=== PATIENT | female | born 1955 | race Two or more races ===

== ENCOUNTER 2024-10-26 05:06 | Emergency (ER) | payer OTHER ==
[~2024-10-26] VITALS: Ht 160 cm; Wt 60.8 kg
[2024-10-26] MEDS ORDERED: HYOSCYAMINE SULFATE 0.125 MG TAB.SUBL SL STA (05:44)
[2024-10-26] MEDS ORDERED: PROMETHAZINE HCL 50 MG/ML AMPUL IM STA (05:44)
[2024-10-26] MEDS ORDERED: 0.9 % SODIUM CHLORIDE 1,000 ML IV ONE (05:45)
[2024-10-26] MEDS ORDERED: LACTOBACILLUS ACIDOPHILUS 1 CAP CAP PO STA (05:47)
[2024-10-26] MEDS ORDERED: FAMOTIDINE/PF 20 MG in 0.9 % SODIUM CHLORIDE 10 ML IV PUSH STA (05:47)
[2024-10-26 07:30] LABS: HEMATOCRIT 37.8 % (36.0-45.00); HEMOGLOBIN 12.8 g/dL (12.0-15.00); MEAN CELL VOLUME 86.7 fL (80.00-100.00); MEAN CORPUSCULAR HEMOGLOBIN 29.4 pg (27.00-32.0); PLATELET COUNT 280 K/uL (150-450); RED BLOOD COUNT 4.36 M/uL (4.00-6.00); RED CELL DISTRIBUTION WIDTH 14.1 % (11.5-14.5)
[2024-10-26 08:00] LABS: URINE APPEARANCE Cloudy; URINE BILIRRUBIN Negative (NEGATIVE); URINE BLOOD Large; URINE COLOR Yellow; URINE GLUCOSE Negative (NEGATIVE); URINE KETONE Negative (NEGATIVE); URINE LEUKOCYTE Negative; URINE NITRATE Negative; URINE PROTEIN Negative (NEGATIVE); URINE UROBILINOGEN 0.2 E.U./dl
[2024-10-26 08:04] LABS: URINE BACTERIA 14.6 uL (0.0-1933); URINE RBC 180.2 uL (0.0-20.8); URINE WBC 7.9 uL (0.0-23.2)
[2024-10-26 08:09] LABS: URINE CAST 0.14 uL (0.0-1.40)
[2024-10-26 09:24] LABS: CALCIUM 8.6 mg/dL (8.5-10.1); CREATININE SERUM 0.64 mg/dL (0.55-1.02); GFR 92.56; POTASSIUM 3.57 mEq/L (3.5-5.1)
== END 2024-10-26 13:58 | disposition home or self-care (01) ==
LOC: ER 05:06
PROVIDERS: General Practice
DX: R10.9 Unspecified abdominal pain (principal); R11.10 Vomiting, unspecified; R19.7 Diarrhea, unspecified
CPT/HCPCS: 36415; 96365; 96366; 96372; 99282; J2550; J3490; J7030